=== PATIENT | male | born 1975 | race Caucasian/White ===

== ENCOUNTER 2019-11-13 19:22 | Observation (INO) ==
[2019-11-13 20:06] LABS: Basophils % 0.3 % (0.1-2.0); Eosinophils # 0.1 K/mm3 (0.0-0.4); Eosinophils % 1.4 % (0.1-12.0); Hematocrit 38.6 % (42.0-52.0); Hemoglobin 11.7 g/dL (14.1-18.0); Lymphocytes # 1.6 K/mm3 (0.7-4.5); Lymphocytes % 21.1 % (10-50); Mean Corpuscular HGB Conc 30.4 g/dL (31.8-35.4); Mean Corpuscular Volume 95.9 fl (80-94); Mean Platelet Volume 15.8 fl (7.4-10.4); Monocytes # 0.5 K/mm3 (0.1-1.0); Monocytes % 6.5 % (1.7-9.3); Neutrophils # 5.4 K/mm3 (1.8-7.8); Neutrophils % 70.7 % (37.0-80.0); Platelet Count 202 K/mm3 (142-424); Red Blood Count 4.02 M/mm3 (4.60-6.20); Red Cell Distribution Width 15.1 % (11.5-17.5); White Blood Count 7.7 K/mm3 (4.8-10.8)
--- NOTE | 2019-11-13 20:14 | Emergency Department Note ---
ED Disposition Clinical Impression: Chest pain, precordial, Hypokalemia, Hypocalcemia, Hypomagnesemia, Hypophosphatemia Disposition: Admitted as Observation Condition on Discharge: Good - Critical Care Critical Care Time: Yes Attestation: On 11/13/19, the high probability of a clinically significant, sudden or life threatening deterioration of the following system(s) required my full and direct attention, intervention and personal management. The time I documented below is in addition to time spent performing reported procedures but includes the following listed in this critical care notation. Total Critical Care Time: 30 Vital system(s) involved:: Metabolic Failure My critical care processes included: Assessment & monitoring of V/S, Initial and Re-exams, Data Review/Interpretation, Coordinating Care, Medication Orders and management, Documentation Medical Decision Making - Arsalan Inquiry Pt receiving controlled substance: No Vital Signs: 11/13/19 19:23 11/13/19 20:55 Temperature 98.2 F 98.2 F Temperature Source Oral Oral Pulse Rate 77 Pulse Rate [Right] 95 H Respiratory Rate 20 16 Blood Pressure 157/97 H Blood Pressure [Right Arm] 152/98 H Blood Pressure Mean [Right Arm] 116 Blood Pressure Source [Right Arm] Automatic Cuff Blood Pressure Position [Right Arm] Sitting 02 Sat by Pulse Oximetry 97 Oxygen Delivery Method Room Air Room Air - Lab Data Lab Results 11/13/19 19:30: WBC 7.7, RBC 4.02 L, Hgb 11.7 L, Hct 38.6 L, MCV 95.9 H, MCH 29.1, MCHC 30.4 L, RDW 15.1, Plt Count 202, MPV 15.8 H, Neut % (Auto) 70.7, Lymph % (Auto) 21.1, [place] % (Auto) 6.5, Eos % (Auto) 1.4, Baso % (Auto) 0.3, Neut # (Auto) 5.4, Lymph # (Auto) 1.6, [place] # (Auto) 0.5, Eos # (Auto) 0.1, Baso # (Auto) 0.0 11/13/19 19:30: Sodium 144, Potassium 2.4 L*, Chloride 111 H, Carbon Dioxide 22, Anion Gap 13.4, BUN 14, Creatinine 0.81, Estimated Creat Clear 131, Estimated GFR 104, Est GFR ( Amer) 125, Glucose 94, Calcium 6.3 L, Troponin I < 0.02 11/13/19 19:30: Total Bilirubin 0.2, Direct Bilirubin 0.1, Indirect Bilirubin 0.1, AST 9 L, ALT 11 L, Alkaline Phosphatase 67, Total Protein 4.9 L, Albumin 2.7 L 11/13/19 19:30: Phosphorus 2.0 L, Magnesium 1.2 L Result diagrams: 11/13/19 19:30 11/13/19 19:30 Orders (Tests/Meds): ED MEDICATIONS Generic Name Dose Route Start Last Admin Trade Name Freq PRN Reason Stop Dose Admin Acetaminophen 650 mg 11/13/19 20:54 Acetaminophen 325mg Tab PO 12/13/19 20:53 Q4HP PRN As Needed for Fever or Pain Potassium Chloride/Dextrose/Sod Cl 1,000 mls @ 100 mls/hr 11/13/19 21:00 11/14/19 06:03 Kcl 40meq In Dex 5%/0.45% Nacl IV 12/13/19 20:59 100 mls/hr .Q10H VONDA Administration Magnesium Oxide 400 mg 11/13/19 22:30 11/13/19 22:43 Mag-Ox 400mg Tab PO 12/13/19 22:29 400 mg BID VONDA Administration Nicotine 21 mg 11/13/19 20:54 Nicoderm 21mg/24hr Patch TD 12/13/19 20:53 DAILYP PRN Nicotine Cravings Ondansetron HCl 4 mg 11/13/19 20:54 Zofran 4mg/2ml Vial IV 12/13/19 20:53 Q8HP PRN Nausea Potassium Phosphate 250 mg 11/14/19 09:00 Phospha 250 Neutral Tablet PO 12/14/19 08:59 QID VONDA Discontinued Medications Generic Name Dose Route Start Last Admin Trade Name Freq PRN Reason Stop Dose Admin Calcium Gluconate 1,000 mg/ 35 mls @ 100 mls/hr 11/13/19 20:29 11/13/19 20:36 Sodium Chloride IV 11/13/19 20:49 100 mls/hr ONCE ONE Administration Morphine Sulfate 4 mg 11/13/19 19:35 11/13/19 19:36 Morphine 4mg/Ml Syringe IV 11/13/19 19:36 4 mg ONCE ONE Administration Nitroglycerin 0.4 mg 11/13/19 19:28 11/13/19 19:29 Nitrostat 0.4mg Sl Tablet SL 11/13/19 19:29 1 tab ONCE ONE Administration Ondansetron HCl 4 mg 11/13/19 19:35 11/13/19 19:36 Zofran 4mg/2ml Vial IV 11/13/19 19:36 4 mg ONCE ONE Administration Potassium Chloride 60 meq 11/13/19 20:29 11/13/19 20:36 Klor-Con 20meq Tablet PO 11/13/19 20:30 60 meq ONCE ONE Administration Potassium Chloride/Water 20 meq 11/13/19 20:29 11/13/19 21:49 Potassium Chloride 20meq/100ml Ivpb IV 11/13/19 20:30 Not Given ONCE ONE ORDERS Category Date Time Status Comprehensive Metabolic Panel AMLAB Lab 11/14/19 06:00 Ordered Parathyroid Hormone Intact Routine Lab 11/13/19 19:30 Received - Radiology Data #1 Image(s): Chest Image Reviewed: Yes I reviewed the patient's radiology image Fibrotic changes both bases. No old chest x-rays for comparison. - ECG Data Tracing #1 EKG interpreted by Casey Gold MD: Rhythm: sinus Rate: 89 [place]: normal Ectopy: none Conduction: Incomplete right bundle branch block ST Segment Changes: none T Wave Changes: none Q Waves: none No evidence of acute ischemia or injury Baseline artifact present, but I consider the EKG adequate for accurate interpretation. - Physician Consults Physician Consulted: Meseret Time: 20:44 Reason -: Admission Comment/Response: Agrees to admit the patient to the hospital. We discussed the patient's clinical information, including history, exam, laboratory and radiology results and ED course. Per hospital procedure, I will write temporary bridge inpatient orders on the patient. Specific orders requested by the admitting physician: D5 half-normal saline with 40 mEq potassium, recheck electrolytes in the morning. Serial cardiac enzymes. Medical Decision Narrative: Discussed patient's x-ray findings as well as lab findings. 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 He says that he had nodules in his lungs and they "flush them out". It sounds as if he had a bronchoscopy done. He says that it turned out okay. General Adult HPI - General Chief complaint: Chest Pain Stated complaint: CP Time Seen by Provider: 11/13/19 20:15 Mode of Arrival: EMS Limitations: No Limitations Description of Symptoms (Recalled from ER Triage Doc. by RN): PATIENT PRESENTS TO TRAUMA 4 VIA EMS FROM HOME C/O CHEST PAIN THAT STARTED AROUND 1430 THIS AFTERNOON. REPORTS PAIN IS IN THE CENTER OF HIS CHEST AND RADIATES DOWN L ARM. PATIENT STATES HE ATTEMPTED TO TAKE A NAP IN HOPES TO EASE THE PAIN, BUT AWOKE FROM NAP WITH THE SAME SYMPTOMS PROMPTING HIM TO CALL EMS. - History of Present Illness HPI narrative: Continuous chest pain that started at 2:30 PM, associated with diaphoresis and dyspnea. Pain felt like a weight on his chest. Denies any history of heart disease, hypertension, diabetes, hyperlipidemia. Has a family history of heart disease in his parents. He is a smoker. He was given nitroglycerin prior to my arrival and says that his pain is now 4/10. He says it was 10/10 earlier. He is not on any medication. He does not see a primary care doctor, he states "I just try not to get sick". No recent illness. No URI symptoms or cough. No fever. He was feeling fine prior to the onset of chest pain. - Related Data Home Medications Medication Instructions Recorded Confirmed No Known Home Medications 11/13/19 11/13/19 Allergies Allergy/AdvReac Type Severity Reaction Status Date / Time No Known Allergies Allergy Verified 11/13/19 19:27 [facility] History - Hepatitis A Screen Drug use history?: No High risk sexual behaviors?: No History of sexually transmitted infection?: No Currently employed?: No Childcare worker?: No Do you have indoor plumbing?: Yes Do you have electricity?: Yes Attestation statement:: This patient has been screened for Hepatitis A risk factors. I have reviewed the patient's past medical history: Yes Medical History: Denies:: Diabetes Mellitus Type 1, Diabetes Mellitus Type 2 - Social History Smoking Status: Current every day smoker # Packs/Day (cigarettes): 1 Alcohol Intake: never Occupational Status: employed ROS Obtained: Yes All systems reviewed & no additional complaints - Constitutional Constitutional: Denies fever(s) - ENT Ears, Nose, Mouth, and Throat: Denies nasal discharge, Denies sore throat - Cardiovascular Cardiovascular: Reports chest pain, Reports diaphoresis - Respiratory Respiratory: No cough, Yes dyspnea - Gastrointestinal Gastrointestingal: Denies: nausea, vomiting Physical Exam - General General appearance: alert, in no apparent distress - Head Head exam: atraumatic, normocephalic - Eye Eye exam: Present: normal appearance, EOMI - ENT ENT exam: Present: mucous membranes moist - Neck Neck exam: Present: normal inspection, trachea midline - Chest Chest inspection: Present: normal inspection, symmetric chest wall rise - Respiratory Respiratory exam: Present: normal lung sounds bilaterally. Absent: respiratory distress - Cardiovascular Cardiovascular exam: Present: regular rate, normal rhythm, normal heart sounds - Abdominal Exam Abdominal exam: Present: soft, normal bowel sounds. Absent: distention, tenderness - Extremities Exam Extremities exam: Present: normal inspection, normal capillary refill, other (Normal peripheral pulses) - Neurological Exam Neurological exam: Present: alert, oriented X3 - Psychiatric Psychiatric exam: Present: normal affect, normal mood - Skin Skin exam: Present: warm, dry
[2019-11-13 20:17] LABS: Anion Gap 13.4 mEq/L (5-15); Blood Urea Nitrogen 14 mg/dL (7-18); Carbon Dioxide 22 mmol/L (21.0-32.0); Chloride 111 mmol/L (98-107); Glucose 94 mg/dL (74-106); Sodium 144 mmol/L (136-145)
[2019-11-13 20:19] LABS: Calcium 6.3 mg/dL (8.5-10.1)
[2019-11-13 20:51] LABS: Albumin Level 2.7 gm/dL (3.4-5.0); Bilirubin,Direct 0.1 mg/dL (0.0-0.2); Bilirubin,Indirect 0.1 mg/dL (0.0-0.9); Bilirubin,Total 0.2 mg/dL (0.2-1.0); Total Protein,Serum 4.9 gm/dL (6.4-8.2)
[2019-11-14 08:31] LABS: Albumin Level 3.4 gm/dL (3.4-5.0); Albumin/Globulin Ratio 1.1 (1.1-1.8); Bilirubin,Total 0.6 mg/dL (0.2-1.0); Phosphorous 2.5 mg/dL (2.4-4.9); Total Protein,Serum 6.4 gm/dL (6.4-8.2)
[2019-11-14 08:41] LABS: Calcium 8.7 mg/dL (8.5-10.1)
--- NOTE | 2019-11-14 09:07 | H&P/Discharge Summary ---
General - General Admission date:: 11/13/19 Discharge date: 11/14/19 *Admission Date: 11/13/19 *Chief complaint: Chest pain *History of present illness: 44 year old male with minimal medical history presented to [facility] ER yesterday complaining of a 6 hour history of anterior chest pain. 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 During lunch his pain started and he had difficulty getting it to resolve. At one point he tried to take a nap but got no relief so he came into the ER for an evaluation. Patient is a current everyday smoker. [facility] History Medical History: Denies:: Atherosclerotic Heart Disease, Cancer, Chronic Obstructive Pulmonary Disease (COPD), Diabetes Mellitus Type 1, Diabetes Mellitus Type 2, MRSA *Have you ever received a pneumonia vaccine?: Yes *Have you received a flu vaccine this season?: No Laterality Cases: Left: Other Other Surgeries: Yes: Appendectomy Amputation: No Fractures: Yes (RIGHT BROKEN LEG) - *Social History Educational Level: Attended High School Smoking Status: Current every day smoker Tobacco Type: cigarettes # Packs/Day (cigarettes): 1 Alcohol Intake: never *Occupational Status:: employed Housing: apartment Household Members: none *Travel in the last 8 weeks: None Family Hx:: Asthma, Cancer, Diabetes Review of Systems - Constitutional Denies chills, Denies fever(s) - Eyes Denies change in vision - ENT Denies abnormal hearing - *Cardiovascular Denies shortness of breath, Denies leg swelling - *Respiratory Denies cough - *Gastrointestinal Denies abdominal pain - *Genitourinary Denies difficulty urinating - *Musculoskeletal Denies joint pain - Integumentary/Breasts Denies rash - *Neurologic Denies confusion, Denies dizziness, Denies memory loss - Psychiatric Denies depression, Denies memory loss Exam Vital signs and Labs for Last 24 Hours: Temp Pulse Resp BP Pulse Ox 98.2 F 74 18 125/76 95 11/14/19 08:00 11/14/19 08:00 11/14/19 08:00 11/14/19 08:00 11/14/19 08:00 Laboratory Results - last 24 hr 11/13/19 19:30: WBC 7.7, RBC 4.02 L, Hgb 11.7 L, Hct 38.6 L, MCV 95.9 H, MCH 29.1, MCHC 30.4 L, RDW 15.1, Plt Count 202, MPV 15.8 H, Neut % (Auto) 70.7, Lymph % (Auto) 21.1, [place] % (Auto) 6.5, Eos % (Auto) 1.4, Baso % (Auto) 0.3, Neut # (Auto) 5.4, Lymph # (Auto) 1.6, [place] # (Auto) 0.5, Eos # (Auto) 0.1, Baso # (Auto) 0.0 11/13/19 19:30: Sodium 144, Potassium 2.4 L*, Chloride 111 H, Carbon Dioxide 22, Anion Gap 13.4, BUN 14, Creatinine 0.81, Estimated Creat Clear 131, Estimated GFR 104, Est GFR ( Amer) 125, Glucose 94, Calcium 6.3 L, Troponin I < 0.02 11/13/19 19:30: Total Bilirubin 0.2, Direct Bilirubin 0.1, Indirect Bilirubin 0.1, AST 9 L, ALT 11 L, Alkaline Phosphatase 67, Total Protein 4.9 L, Albumin 2.7 L 11/13/19 19:30: Phosphorus 2.0 L, Magnesium 1.2 L 11/13/19 22:10: Troponin I < 0.02 11/14/19:: Troponin I < 0.02 11/14/19 07:45: Sodium 138, Potassium 4.0 D, Chloride 104, Carbon Dioxide 25, Anion Gap 13.0, BUN 11, Creatinine 0.99 D, Estimated Creat Clear 112, Estimated GFR 82, Est GFR ( Amer) 99 D, Glucose 137 H D, Calcium 8.7 D, Phosphorus 2.5, Magnesium 1.9 D, Total Bilirubin 0.6, AST 10 L, ALT 11 L, Alkaline Phosphatase 82, Total Protein 6.4 D, Albumin 3.4 D, Globulin 3.0, Albumin/Globulin Ratio 1.1 Vital Signs - 24 hr 11/13/19 19:23 11/13/19 20:55 11/13/19 21:14 Temperature 98.2 F 98.2 F 98.5 F Pulse Rate 77 Pulse Rate [Left Radial] 88 Pulse Rate [Right] 95 H Respiratory Rate 20 16 17 Blood Pressure 157/97 H Blood Pressure [Right Arm] 152/98 H 161/93 H 02 Sat by Pulse Oximetry 97 97 11/13/19 21:21 11/14/19 00:00 11/14/19 04:00 Temperature 99.1 F 99.4 F Pulse Rate 90 80 70 Pulse Rate [Left Radial] 91 H 68 Pulse Rate [Right] Respiratory Rate 17 16 Blood Pressure Blood Pressure [Right Arm] 142/78 H 135/77 02 Sat by Pulse Oximetry 97 96 11/14/19 08:00 Temperature 98.2 F Pulse Rate Pulse Rate [Left Radial] 74 Pulse Rate [Right] Respiratory Rate 18 Blood Pressure Blood Pressure [Right Arm] 125/76 02 Sat by Pulse Oximetry 95 I & O for Last 24 hours: Intake & Output 11/11/19 11/12/19 11/13/19 11/14/19 23:59 23:59 23:59 23:59 Intake Total 1558 / 1558 Balance 1558 / 1558 Weight 185 lb 6 oz 183 lb 2 oz - Constitutional no acute distress - *Routine HEENT Exam Head: Present: normocephalic Eye: Present: EOMI, PERRL ENT: Present: mucous membranes moist - *Routine Neck Exam Present: supple. Absent: lymphadenopathy - *Routine Respiratory Exam Present: CTA bilaterally - *Routine Cardiovascular Exam Present: RRR - *Routine Abdominal Exam Present: soft, normoactive bowel sounds. Absent: tenderness - *Routine Extremities Exam Absent: cyanosis, clubbing, edema - *Routine Skin Exam Present: warm. Absent: rash - *Routine Neurological Exam Present: alert, oriented X3 Hospital Course Hospital Course: Patient was admitted for further evaluation and management of his chest pain and electrolyte disturbances. He received IV and oral potassium and IV calcium. T his morning his pain has resolved and his electrolytes are normal. His troponin was negative x3. He is anxious to go home. Plan discharge home today. Will have patient take a multi vitamin daily and have office f/u in 2 weeks for recheck of labs. Smoking cessation discussed with patient. Results Labs on day of discharge: Labs from last 24 hours 11/14/19 11/14/19 11/13/19 07:45 01:20 22:10 WBC RBC Hgb Hct MCV MCH MCHC RDW Plt Count MPV Neut % (Auto) Lymph % (Auto) [place] % (Auto) Eos % (Auto) Baso % (Auto) Neut # (Auto) Lymph # (Auto) [place] # (Auto) Eos # (Auto) Baso # (Auto) Sodium 138 Potassium 4.0 D Chloride 104 Carbon Dioxide 25 Anion Gap 13.0 BUN 11 Creatinine 0.99 D Estimated Creat Clear 112 Estimated GFR 82 Est GFR ( Amer) 99 D Glucose 137 H D Calcium 8.7 D Phosphorus 2.5 Magnesium 1.9 D Total Bilirubin 0.6 Direct Bilirubin Indirect Bilirubin AST 10 L ALT 11 L Alkaline Phosphatase 82 Troponin I < 0.02 < 0.02 Total Protein 6.4 D Albumin 3.4 D Globulin 3.0 Albumin/Globulin Ratio 1.1 11/13/19 11/13/19 11/13/19 19:30 19:30 19:30 WBC RBC Hgb Hct MCV MCH MCHC RDW Plt Count MPV Neut % (Auto) Lymph % (Auto) [place] % (Auto) Eos % (Auto) Baso % (Auto) Neut # (Auto) Lymph # (Auto) [place] # (Auto) Eos # (Auto) Baso # (Auto) Sodium 144 Potassium 2.4 L* Chloride 111 H Carbon Dioxide 22 Anion Gap 13.4 BUN 14 Creatinine 0.81 Estimated Creat Clear 131 Estimated GFR 104 Est GFR ( Amer) 125 Glucose 94 Calcium 6.3 L Phosphorus 2.0 L Magnesium 1.2 L Total Bilirubin 0.2 Direct Bilirubin 0.1 Indirect Bilirubin 0.1 AST 9 L ALT 11 L Alkaline Phosphatase 67 Troponin I < 0.02 Total Protein 4.9 L Albumin 2.7 L Globulin Albumin/Globulin Ratio 11/13/19 19:30 WBC 7.7 RBC 4.02 L Hgb 11.7 L Hct 38.6 L MCV 95.9 H MCH 29.1 MCHC 30.4 L RDW 15.1 Plt Count 202 MPV 15.8 H Neut % (Auto) 70.7 Lymph % (Auto) 21.1 [place] % (Auto) 6.5 Eos % (Auto) 1.4 Baso % (Auto) 0.3 Neut # (Auto) 5.4 Lymph # (Auto) 1.6 [place] # (Auto) 0.5 Eos # (Auto) 0.1 Baso # (Auto) 0.0 Sodium Potassium Chloride Carbon Dioxide Anion Gap BUN Creatinine Estimated Creat Clear Estimated GFR Est GFR ( Amer) Glucose Calcium Phosphorus Magnesium Total Bilirubin Direct Bilirubin Indirect Bilirubin AST ALT Alkaline Phosphatase Troponin I Total Protein Albumin Globulin Albumin/Globulin Ratio - Additional Comments EKG with no ischemic changes DS: Diagnosis - Discharge Diagnosis (1) Chest pain, precordial Status: Acute (2) Hypokalemia Status: Acute (3) Hypocalcemia Status: Acute (4) Hypomagnesemia Status: Acute (5) Hypophosphatemia Status: Acute (6) Nicotine dependence, unspecified, uncomplicated Status: Acute Discharge Plan - Patient Discharge Instructions ACTIVITY: Continue current activity DIET: continue same diet Patient Instructions: DI for Hypokalemia, DI for Hypocalcemia, DI for Chest Pain - Follow up Plan Follow up with: Too Carl MD [Staff Physician] - 2 weeks Disposition: Home, Self-Fdc Medications: Home Medications Medication Instructions Recorded Confirmed Type No Known Home Medications 11/13/19 11/13/19 History Multivitamin [Multi-Vitamin Plain] 1 each PO DAILY #30 tab 11/14/19 Rx Prescriptions/Medication Reconciliation: New Multivitamin [Multi-Vitamin Plain] 1 each PO DAILY #30 tab Continued No Known Home Medications - Problem Reconciliation Problems Reviewed?: Yes
--- NOTE | 2019-11-18 07:42 | Electrocardiograph Report ---
APPROVED REPORT Exam: Resting ECG HR:89 bpm ECG Measurements Heart Rate 89 AXES HI 148 P 45 QRSd 98 QRS 41 QT 344 T51 QTc 418 <Conclusion> Normal sinus rhythm Normal ECG Electronically signed by : [place] Ac, 11/18/2019 07:41:42
== END 2019-11-14 10:54 | disposition home or self-care (01) ==
LOC: 2ND 19:22 → ER 19:22 → 2ND 21:14
PROVIDERS: ADMIT Family Medicine; ATTEND Family Medicine
CPT/HCPCS: 36415; 71020; 71046; 80048; 80053; 80076; 83735; 83970; 84100; 84484; 85025; 93005; 96365; 99284; G0378; J2405

== ENCOUNTER 2021-03-19 20:55 | Emergency (ER) | payer MEDICAID, SELFPAY ==
[2021-03-19 21:00] VITALS: BMI 24.8
--- NOTE | 2021-03-19 21:00 | XR_ITS ---
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 Views: 3 views. COMPARISON: No relevant prior studies available. FINDINGS: Bones/joints: Small knee joint effusion. Mild degenerative tibial spine osteophyte formation. No acute fracture or dislocation. Soft tissues: Normal. IMPRESSION: No acute fracture or dislocation.
[2021-03-19 21:01] VITALS: BP 127/75; PULSE 85; RESP 14; TEMP 37; O2SAT 99; BMI 24.9
[2021-03-19 21:07] VITALS: BP 127/75; PULSE 85; RESP 17; TEMP 36.8; O2SAT 96
--- NOTE | 2021-03-19 21:32 | HMH.EDUTC ---
[facility] [place]position Clinical Impression: Effusion, left knee Left knee pain Qualifiers: Chronicity: chronic Qualified Code(s): M25.562 - Pain in left knee Disposition: Home, Self-Care Condition on Discharge: Good Instructions: DI for Knee Pain Additional Instructions: Rest the extremity, apply ice for 15 minutes as tolerated three or four times per day, Elevate the extremity as tolerated while you are resting. Take ibuprofen for pain. I sent in a prescription to your pharmacy. Follow up with Dr. Cheng (orthopedics). I put in a referral but you need to call his office and schedule an appointment. Follow up with your regular doctor. GO TO THE ER FOR ANY WORSENING SYMPTOMS Prescriptions: Ibuprofen [Ibuprofen 600mg Tablet] 600 mg PO Q6HP PRN #30 tab PRN Reason: Mild Pain Transmission Status: Received by [facility] #[id number] Referrals: Too Carl MD [Primary Care Provider] - Iván Cheng MD [Staff Physician] - Forms: Work/School Release Time of Disposition: 21:33 Medical Decision Making - Medical Records Medical records reviewed: No: I reviewed the patient's medical records. - Arsalan Inquiry Pt receiving controlled substance: No Vital Signs: 03/19/21 21:01 03/19/21 21:07 Temperature 98.6 F 98.2 F Temperature Source Oral Pulse Rate 85 Pulse Rate [Right] 85 Respiratory Rate 14 17 Blood Pressure 127/75 Blood Pressure [Right Arm] 127/75 Blood Pressure Mean [Right Arm] 92 Blood Pressure Source [Right Arm] Automatic Cuff Blood Pressure Position [Right Arm] Sitting 02 Sat by Pulse Oximetry 99 - Radiology Data #1 Image(s): Knee Image Reviewed: Yes I reviewed the patient's radiology image, Yes I have reviewed radiologist's interpretation Preliminary Findings: No Fracture Seen 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 Views: 3 views. COMPARISON: No relevant prior studies available. FINDINGS: Bones/joints: Small knee joint effusion. Mild degenerative tibial spine osteophyte formation. No acute fracture or dislocation. Soft tissues: Normal. IMPRESSION: No acute fracture or dislocation. [facility] [place] HPI - General Stated complaint: left knee pain no ao Time Seen by Provider: 03/19/21 21:10 Mode of Arrival: Ambulatory Source of Information: Patient Limitations: No Limitations Description of Symptoms (Recalled from Triage Doc. by RN): pt states he injured his L knee two years ago. he complains it has been hurting worse. pt lays carpet for a living. HEENT Symptoms (Recalled from RN notes): No Resp Symptoms (Recalled from RN notes): No Skin Symptoms (Recalled from RN notes): No MS Symptoms (Recalled from RN notes): Yes (L knee pain) Functional Status (Recalled from RN notes): na - History of Present Illness Provider Complaint: He is here with chronic left knee pain. He states that he installed carpet 2 days ago and it has hurt worse ever since. He denies any recent injury. - Related Data Previous Rx's Medication Instructions Recorded Multivitamin [Multi-Vitamin Plain] 1 each PO DAILY #30 tab 11/14/19 Ibuprofen [Ibuprofen 600mg 600 mg PO Q6HP PRN #30 tab 03/19/21 Tablet] Allergies Allergy/AdvReac Type Severity Reaction Status Date / Time No Known Allergies Allergy Verified 03/19/21 21:05 - Worker's Comp Is this a Worker's Comp case?: No [facility] History - Hepatitis A Screen Drug use history?: No High risk sexual behaviors?: No History of sexually transmitted infection?: No Currently employed?: No Childcare worker?: No Do you have indoor plumbing?: Yes Do you have electricity?: Yes Attestation statement:: This patient has been screened for Hepatitis A risk fac
== END 2021-03-19 21:40 | disposition home or self-care (01) ==
PROVIDERS: Emergency Provider Nurse Practitioner Family; PCP Family Medicine
DX: M25.462 Effusion, left knee (principal); M25.562 Pain in left knee; F17.210 Nicotine dependence, cigarettes, uncomplicated; X50.0XXA Overexertion from strenuous movement or load, initial encounter
CPT/HCPCS: 29515; 73562; 99203; G0463